=== PATIENT | female | born 1990 | race Caucasian/White ===

== ENCOUNTER 2016-11-05 21:49 | Emergency (ER) | payer OTHER ==
--- NOTE | 2016-11-05 22:23 | RAD ---
EXAM DESCRIPTION: Foot,Left 3 Views CLINICAL HISTORY: stepped on a metal stake COMPARISON: None FINDINGS: AP, lateral and oblique views of the left foot were submitted. Lucencies within the soft tissues at the dorsum of the foot compatible with the known laceration. There is no discrete acute fracture or dislocation. Bone mineralization is within normal limits. There is no radiopaque foreign body material IMPRESSION: No acute fracture or dislocation. Lucencies within the soft tissues at the dorsum of the foot compatible with the known laceration. Electronically signed by: Isidro Arellano MD 11/05/2016 10:21 PM CDT
[2016-11-05 22:31] VITALS: O2SAT 96
--- NOTE | 2016-11-05 23:41 | ED.PDOC ---
History of Present Illness - General Chief Complaint: Lower Extremity Injury Stated Complaint: metal stake to foot Time Seen by Provider: 11/05/16 23:40 Source: patient Exam Limitations: no limitations - History of Present Illness Initial Comments: Shahriar Patel 26 y/o female stated she tripped on the pointed edge of a dog leash sustaining laceration to left foot.Denies falling. Occurred: just prior to arrival Pain - Lower Extremity: moderate: Left Foot Method of Injury: other - tripped Improving Factors: nothing Worsening Factors: movement Allergies/Adverse Reactions: Allergies NO KNOWN ALLERGY Allergy (Verified 11/05/16 22:03) Home Medications: Ambulatory Orders Amoxicillin [Amoxil] 1,000 mg PO BID #30 cap 11/06/16 Review of Systems - Review of Systems Constitutional: States: no symptoms reported EENTM: States: no symptoms reported Respiratory: States: no symptoms reported Cardiology: States: no symptoms reported Gastrointestinal/Abdominal: States: no symptoms reported Genitourinary: States: no symptoms reported Musculoskeletal: States: see HPI Skin: States: see HPI Past Medical History (General) - Patient Medical History Hx Asthma: Yes Hx Gastroesophageal Reflux: Yes - Vaccination History Hx Tetanus, Diphtheria Vaccination: No - Social History Hx Tobacco Use: Yes Hx Alcohol Use: Yes - Female History Patient : No Family Medical History - Family History Mother Family History: Unknown Physical Exam - Physical Exam General Appearance: Alert, Comfortable, No apparent distress Eyes, Ears, Nose, Throat: PERRL/EOMI, normal ENT inspection, pharynx normal Neck: non-tender, supple Cardiovascular/Respiratory: regular rate, rhythm, no M/R/G, normal peripheral pulses, normal breath sounds Gastrointestinal/Abdominal: non-tender, no organomegaly Back: no CVA tenderness, no vertebral tenderness Thigh/Hip: no evidence of injury Leg: no evidence of injury Knee: no evidence of injury Ankle: no evidence of injury Foot: bone tenderness - left foot, laceration - 2 cm dorsal aspect left foot Progress - EKG/XRAY/CT XRAY: left foot no fracture/radiologist Procedures - Laceration/Wound Repair Left Foot Wound Length (cm): 2 Wound's Depth, Shape: superficial, linear Wound Explored: no foreign body removed Irrigated w/ Saline (cc's): 20 Betadine Prep?: Yes Anesthesia: 1% Lidocaine Volume Anesthetic (cc's): 7 Wound Repaired With: sutures Suture Size/Type: 4:0, nylon Number of Sutures: 3 Layer Closure?: No Sterile Dressing Applied?: Yes Departure - Departure Clinical Impression: Laceration of foot Qualifiers: Encounter type: initial encounter Laterality: left Qualified Code(s): S91.312A - Laceration without foreign body, left foot, initial encounter Time of Disposition: 00:25 Disposition: Discharge to Home or Self Care Condition: Good Departure Forms: ED Discharge - Pt. Copy, Patient Portal Self Enrollment Instructions: How to Care for a Laceration After Repair, DI for Laceration Repair -- Simple Prescriptions: Amoxicillin [Amoxil] 1,000 mg PO BID #30 cap Home Medications: Ambulatory Orders Amoxicillin [Amoxil] 1,000 mg PO BID #30 cap 11/06/16 Additional Instructions: REMOVAL OF SUTURES 11/17/2016 by primary
[2016-11-05] MEDS ORDERED: LIDOCAINE 1% 10 ML VIAL INJ ONE (23:47)
[2016-11-06] MEDS ORDERED: NEOMYCIN-BACITRACIN-POLYMYXIN 0.9 GM UD TOP ONE (00:05)
[2016-11-06] MEDS ORDERED: AMOXICILLIN 500 MG CAP PO ONE (00:21)
[2016-11-06] MEDS ORDERED: TETANUS,DIPHTHERIA,PERTUSSIS 1 EA SYG IM ONE (00:21)
[2016-11-06] MEDS ORDERED: HYDROCOD/APAP 10/325 (ER DISP) # 3 tablets PO ONE (00:22)
[2016-11-06 01:06] VITALS: BP 142/84; TEMP 97.9
== END 2016-11-06 00:45 | disposition home or self-care (01) ==
LOC: ER 21:49
DX: S91.312A Laceration without foreign body, left foot, initial encounter (principal); K21.9 Gastro-esophageal reflux disease without esophagitis; J45.909 Unspecified asthma, uncomplicated; Z23 Encounter for immunization; W01.0XXA Fall on same level from slipping, tripping and stumbling without subsequent striking against object, initial encounter